=== PATIENT | male | born 1990 | race American Indian/Alaskan Native ===

== ENCOUNTER 2020-12-08 18:09 | Inpatient (IN) ==
[2020-12-08 19:20] LABS: Urine Appearance Clear; Urine Bilirubin Negative (Negative); Urine Blood Negative (Negative); Urine Color Straw; Urine Glucose Negative (Negative); Urine Ketones Negative (Negative); Urine Nitrite Negative (Negative); Urine Protein Negative (Negative); Urine Urobilinogen Negative (Negative)
[2020-12-08 19:36] LABS: Urine Benzodiazepine Screen None Detected (None Detect); Urine Cannabinoids Screen None Detected (None Detect); Urine Opiates Screen None Detected (None Detect)
[2020-12-08 19:40] LABS: ABS Lymphocytes 1.2 10^3/ul (1.0-4.8); ABS Monocytes 0.4 10^3/ul (0-0.8); Eosinophil % 0.1 %; Hematocrit 47 % (42-52); Hemoglobin 16.2 g/dL (14.0-18.0); Lymphocyte % 15.2 %; Mean Corpuscular HGB Conc 35 g/dL (31-36); Mean Corpuscular Hemoglobin 32 pg (27-31); Mean Corpuscular Volume 93 fL (80-94); Mean Platelet Volume 7.7 fL (7.4-10.4); Platelet Count 236 10^3/uL (150-450); Red Blood Count 5.06 10^6 /uL (4.18-5.48); Red Cell Distribution Width 14 % (10-15); White Blood Count 7.6 10^3/uL (3.5-10.8)
[2020-12-08 19:55] LABS: ALT 20 U/L (7-52); AST 22 U/L (13-39); Albumin 4.2 g/dL (3.2-5.2); Albumin/Globulin Ratio 1.4 (1-3); Alkaline Phosphatase 58 U/L (34-104); Anion Gap 9 mmol/L (2-11); BUN/Creatinine Ratio 18.6 (8-20); Blood Urea Nitrogen 16 mg/dL (6-24); CO2 Carbon Dioxide 25 mmol/L (22-32); Calcium 8.4 mg/dL (8.6-10.3); Chloride 103 mmol/L (101-111); EGFR African American 128.1 (>60); EGFR Non-African American 105.9 (>60); Glucose 105 mg/dL (70-100); Potassium 3.7 mmol/L (3.5-5.0); Sodium 137 mmol/L (135-145); Total Protein 7.2 g/dL (6.4-8.9)
[2020-12-08 20:20] LABS: Acetaminophen < 15 mcg/mL; Alcohol, S 11 mg/dL (<10)
[2020-12-08] MEDS ORDERED: Nicotine GUM 2MG FRUIT FLAVOR PO PRN (23:00)
[2020-12-08] MEDS ORDERED: Al Hydrox/Mg Hydrox/Simet LIQ 30 ML UDC PO PRN (23:58)
[2020-12-09] MEDS: Vitamin THERAPEUTIC TAB PO SCH (11:57)
[2020-12-09] MEDS: Nicotine PATCH 14 MG/24 HR PATCH TRANSDERM SCH (11:57)
[2020-12-10 08:15] LABS: HDL Cholesterol 46.8 mg/dL
[2020-12-10] MEDS: Vitamin THERAPEUTIC TAB PO SCH (10:06)
[2020-12-10] MEDS: Nicotine PATCH 14 MG/24 HR PATCH TRANSDERM SCH (10:07)
[2020-12-11 08:41] VITALS: BP 135/87
[2020-12-11] MEDS: Vitamin THERAPEUTIC TAB PO SCH (10:00)
[2020-12-11] MEDS: Nicotine PATCH 14 MG/24 HR PATCH TRANSDERM SCH (10:01)
== END 2020-12-11 13:00 | disposition home or self-care (01) | DRG 897 ==
LOC: ED 18:09 → BSU 21:26
PROVIDERS: ADMIT Psychiatry & Neurology Addiction Psychiatry; ATTEND Psychiatry & Neurology Addiction Psychiatry